=== PATIENT | male | born 1980 | race Caucasian/White ===

== ENCOUNTER 2016-12-02 17:12 | Emergency (ER) | payer OTHER ==
[~2016-12-02] VITALS: Ht 165.1 cm; Wt 61.2 kg
[2016-12-02] MEDS ORDERED: MOBIC15 MG PO (18:09)
[2016-12-02] MEDS ORDERED: CYCLOBENZAPRINE5 MG PO (18:09)
[2016-12-02 18:51] VITALS: BP 120/87
== END 2016-12-02 18:52 | disposition home or self-care (01) ==
LOC: ER 17:12
DX: S39.012A Strain of muscle, fascia and tendon of lower back, initial encounter (principal); V89.0XXA Person injured in unspecified motor-vehicle accident, nontraffic, initial encounter; Y93.89 Activity, other specified; Y92.89 Other specified places as the place of occurrence of the external cause; Y99.8 Other external cause status